=== PATIENT | female | born 1945 | race Caucasian/White ===

== ENCOUNTER → 2017-01-31 | Outpatient (CLI) | payer OTHER ==
[~2017-01-31] VITALS: Ht 165.1 cm; Wt 58.1 kg
[~2017-01-31] MED LIST: ADVAIR 100/501 DISK IH; ADVAIR 250/501 DISK IH; ALBUTEROL17 GM IH; ASPIRIN81 M1 PO; CELEXA40 MG PO; CIPRO500 MG PO; CLONAZEPAM0.5 MG PO; COMBIVENT200 INHALA IH; ELAVIL25 MG PO; FELODIPINE ER10 MG PO; FLAGYL500 MG PO; FLEXERIL10 MG PO; GABAPENTIN300 MG PO; HYDROCODON-ACE1 EAC7 PO; HYDROCODON-ACE1 EAC8 PO; KLONOPIN0.5 M1 PO; LISINOPRIL30 MG PO; LO-DOSE ASPIRIN81 M2 PO; MOBIC15 MG PO; MOTRIN600 MG PO; NEURONTIN400 M1 PO; NEURONTIN800 MG PO; NORCO 7.5/321 TABLET PO; PERCOCET 5-3251 EACH PO; PERCOCET 5/31 TABLET PO; PLENDIL10 MG PO; PRAVACHOL80 MG PO; PRAVASTATIN SOD80 MG PO; VENTOLIN HFA18 GM IH; VICODIN 5-3001 EACH PO; VYTORIN 10-801 EACH PO; ZANAFLEX4 M1 PO; ZANAFLEX4 MG PO; ZESTRIL,PRINIVI30 MG PO
== END | disposition home or self-care (01) ==
LOC: AMB 13:45
DX: K55.039 Acute (reversible) ischemia of large intestine, extent unspecified (principal); D12.2 Benign neoplasm of ascending colon; D12.3 Benign neoplasm of transverse colon; I10 Essential (primary) hypertension; J44.9 Chronic obstructive pulmonary disease, unspecified; Z79.82 Long term (current) use of aspirin
CPT/HCPCS: 88305; 93005

== ENCOUNTER 2017-04-11 11:11 | Day surgery (SDC) | payer OTHER ==
[~2017-04-11] VITALS: Ht 167.6 cm; Wt 61.7 kg
[2017-04-11] MEDS ORDERED: CHLORTHALIDONE25 MG PO (11:30)
== END 2017-04-11 13:10 | disposition home or self-care (01) ==
LOC: PAIN 11:11
PROC: 015B3ZZ Destruction of Lumbar Nerve, Percutaneous Approach (ICD-10-PCS; principal; 2017-04-11)
DX: M47.26 Other spondylosis with radiculopathy, lumbar region (principal); G89.29 Other chronic pain; M25.561 Pain in right knee; F17.200 Nicotine dependence, unspecified, uncomplicated; Z79.891 Long term (current) use of opiate analgesic; F41.9 Anxiety disorder, unspecified; M53.3 Sacrococcygeal disorders, not elsewhere classified; I10 Essential (primary) hypertension; J45.909 Unspecified asthma, uncomplicated; F32.9 Major depressive disorder, single episode, unspecified; Z88.5 Allergy status to narcotic agent; Z88.8 Allergy status to other drugs, medicaments and biological substances
CPT/HCPCS: J1030; J2250; J3010; S0020

== ENCOUNTER 2017-04-24 09:33 | Inpatient (IN) | payer OTHER ==
[~2017-04-24] VITALS: Ht 165.1 cm; Wt 31.6 kg
[~2017-04-24 09:33] MED LIST changes: +CHLORTHALIDONE25 MG PO; -ELAVIL25 MG PO; +ELAVIL75 MG PO
[2017-04-24 10:24] LABS: MCH 31.5 PG (29.0-34.0); MCHC 36.3 G/DL (30.0-36.0); MCV 86.8 FL (83-99); MEAN PLAT.VOLUME 9.8 uM^3 (9.5-12.4); PLATELET COUNT 275 K/uL (156-360); RBC DIS.WIDTH-CV 11.4 % (11.8-14.6); RBC DIS.WIDTH-SD 36.4 % (39-53); RED BLOOD COUNT 4.38 M/uL (3.80-5.20); WHITE BLOOD COUNT 10.9 K/uL (4.1-10.2)
[2017-04-24 10:32] LABS: CHLORIDE 80 mEq/L (99-109); POTASSIUM 3.4 mEq/L (3.7-5.4); SODIUM 120 mEq/L (136-147)
[2017-04-24 10:34] LABS: GLUCOSE 122 mg/dL (70-99)
[2017-04-24 10:35] LABS: ANION GAP 14 MEQ/L (2-14)
[2017-04-24 10:38] LABS: GFR ESTIMATE (CALCULATED) 34 mL/min/
[2017-04-24 10:39] LABS: UREA NITROGEN (BUN) 30 mg/dL (9-23)
[2017-04-24 12:00] LABS: ADD MIUA? YES; BILIRUBIN NEGATIVE; BLOOD NEGATIVE; COLOR YELLOW ((YELLOW)); GLUCOSE (STRIP) NEGATIVE; KETONES NEGATIVE; LEUKOCYTES SMALL; NITRITE NEGATIVE; PROTEIN (STRIP) NEGATIVE; SPECIFIC GRAVITY 1.012 (1.000-1.030); UROBILINOGEN 0.2 MG/DL (0.2-1.0)
[2017-04-24 12:03] LABS: BACTERIA NONE SEEN /HPF; EPITHELIAL CELLS RARE /HPF; MUCUS TRACE /LPF; RED BLOOD CELLS 0-5 /HPF (0-5); UCUL ADDED? YES
[2017-04-24 17:07] VITALS: BP 152/68
[2017-04-24 22:36] LABS: ANION GAP 6 MEQ/L (2-14); CHLORIDE 83 MEQ/L (99-109); GFR ESTIMATE (CALCULATED) 36 mL/min/; POTASSIUM 3.6 MEQ/L (3.7-5.4); SAMPLE HEMOLYSIS CHECK 0; SAMPLE ICTERIC CHECK 0; SAMPLE LIPEMIA CHECK 0; UREA NITROGEN (BUN) 31 mg/dL (9-23)
[2017-04-24 22:38] LABS: GLUCOSE 85 mg/dL (70-99)
[2017-04-24 22:39] LABS: SODIUM 115 MEQ/L (136-147)
[2017-04-24 23:48] VITALS: BP 125/59
[2017-04-25 00:59] LABS: TROP-I INTERPRETATION NEGATIVE; TROPONIN-I < 0.01 ng/mL (0.0-0.30)
[2017-04-25 06:58] LABS: HEMATOCRIT 35.8 % (36.0-46.0); MCH 30.8 PG (29.0-34.0); MCHC 35.2 G/DL (30.0-36.0); MCV 87.5 FL (83-99); MEAN PLAT.VOLUME 9.7 uM^3 (9.5-12.4); PLATELET COUNT 260 K/uL (156-360); RBC DIS.WIDTH-CV 11.6 % (11.8-14.6); RBC DIS.WIDTH-SD 37.1 % (39-53); RED BLOOD COUNT 4.09 M/uL (3.80-5.20); WHITE BLOOD COUNT 8.7 K/uL (4.1-10.2)
[2017-04-25 07:24] LABS: TROP-I INTERPRETATION NEGATIVE; TROPONIN-I < 0.01 ng/mL (0.0-0.30)
[2017-04-25 07:45] VITALS: BP 135/62
[2017-04-25 07:55] LABS: ANION GAP 8 MEQ/L (2-14); CHLORIDE 88 MEQ/L (99-109); GFR ESTIMATE (CALCULATED) 43 mL/min/; GLUCOSE 88 mg/dL (70-99); SAMPLE HEMOLYSIS CHECK 0; SAMPLE ICTERIC CHECK 0; SAMPLE LIPEMIA CHECK 0; UREA NITROGEN (BUN) 29 mg/dL (9-23)
[2017-04-25 07:59] LABS: POTASSIUM 4.4 MEQ/L (3.7-5.4); SODIUM 124 MEQ/L (136-147)
[2017-04-25 10:29] LABS: URIC ACID 7.8 mg/dL (3.1-9.2)
[2017-04-25 11:31] VITALS: BP 115/59
[2017-04-25 16:13] VITALS: BP 119/79
[2017-04-25 20:25] VITALS: BP 145/65
[2017-04-25 23:29] VITALS: BP 138/60
[2017-04-26 04:32] VITALS: BP 141/63
[2017-04-26 06:39] LABS: ANION GAP 10 MEQ/L (2-14); CHLORIDE 94 MEQ/L (99-109); GFR ESTIMATE (CALCULATED) 47 mL/min/; GLUCOSE 98 mg/dL (70-99); POTASSIUM 4.6 MEQ/L (3.7-5.4); SAMPLE HEMOLYSIS CHECK 0; SAMPLE ICTERIC CHECK 0; SAMPLE LIPEMIA CHECK 0; UREA NITROGEN (BUN) 22 mg/dL (9-23)
[2017-04-26 06:43] LABS: SODIUM 132 MEQ/L (136-147)
[2017-04-26 08:07] VITALS: BP 167/72
[2017-04-26] MEDS ORDERED: AUGMENTIN875 MG PO (12:08)
== END 2017-04-26 15:36 | disposition home health service (06) | DRG 682 ==
LOC: EME 09:33 → 5EAST 14:41 → EDOF 14:41 → ENRESERV 14:42 → 5EAST 16:49 → ENPENDDIS 04-26 → 5EAST 04-26 15:36
PROVIDERS: Emergency Medicine; Hospitalist; Internal Medicine Nephrology
DX: N17.9 Acute kidney failure, unspecified (principal); J18.9 Pneumonia, unspecified organism; J96.01 Acute respiratory failure with hypoxia; R64 Cachexia; J44.0 Chronic obstructive pulmonary disease with (acute) lower respiratory infection; J44.1 Chronic obstructive pulmonary disease with (acute) exacerbation; E87.1 Hypo-osmolality and hyponatremia; E87.3 Alkalosis; Z68.1 Body mass index [BMI] 19.9 or less, adult; R29.6 Repeated falls; E86.0 Dehydration; E78.5 Hyperlipidemia, unspecified; M54.40 Lumbago with sciatica, unspecified side; T50.2X1A Poisoning by carbonic-anhydrase inhibitors, benzothiadiazides and other diuretics, accidental (unintentional), initial encounter; E87.6 Hypokalemia; F17.210 Nicotine dependence, cigarettes, uncomplicated; I10 Essential (primary) hypertension; I25.10 Atherosclerotic heart disease of native coronary artery without angina pectoris; F41.9 Anxiety disorder, unspecified; I73.9 Peripheral vascular disease, unspecified; K59.00 Constipation, unspecified; Z79.82 Long term (current) use of aspirin; Z88.5 Allergy status to narcotic agent; Z82.3 Family history of stroke; Z82.49 Family history of ischemic heart disease and other diseases of the circulatory system; Y92.89 Other specified places as the place of occurrence of the external cause
CPT/HCPCS: 70450; 71020; 74176; 80048; 80048 91; 80069; 81003; 82306; 82607; 83605; 83930; 83935; 84300; 84443; 84484; 84550; 85027; 87040; 87086; 93005; 94640; 94640 76; 94799; 99202; 99281; 99285; J0456; J0696; J1644; J7050

== ENCOUNTER 2017-05-30 09:53 | Day surgery (SDC) | payer OTHER ==
[~2017-05-30] VITALS: Ht 165.1 cm; Wt 58.1 kg
[~2017-05-30 09:53] MED LIST changes: +AUGMENTIN875 MG PO; +CENTRUM SILVER1 EAC3 PO
== END 2017-05-30 11:35 | disposition home or self-care (01) ==
LOC: PAIN 09:53
PROC: 015B3ZZ Destruction of Lumbar Nerve, Percutaneous Approach (ICD-10-PCS; principal; 2017-05-30)
DX: M47.26 Other spondylosis with radiculopathy, lumbar region (principal); G89.29 Other chronic pain; M25.561 Pain in right knee; M48.061 Spinal stenosis, lumbar region without neurogenic claudication; R29.6 Repeated falls; F17.210 Nicotine dependence, cigarettes, uncomplicated; I10 Essential (primary) hypertension; F32.9 Major depressive disorder, single episode, unspecified; F41.9 Anxiety disorder, unspecified
CPT/HCPCS: J1030; J2250; J3010; S0020

== ENCOUNTER 2017-07-17 13:46 | Inpatient (IN) | payer OTHER ==
[~2017-07-17] VITALS: Ht 165.1 cm; Wt 54.7 kg
[2017-07-17 14:52] LABS: HEMATOCRIT 36.2 % (36.0-46.0); MCHC 35.4 G/DL (30.0-36.0); MCV 90.5 FL (83-99); MEAN PLAT.VOLUME 10.1 uM^3 (9.5-12.4); PLATELET COUNT 407 K/uL (156-360); RBC DIS.WIDTH-SD 40.2 % (39-53); WHITE BLOOD COUNT 11.6 K/uL (4.1-10.2)
[2017-07-17 15:07] LABS: CHLORIDE 95 mEq/L (99-109); POTASSIUM 5.9 mEq/L (3.7-5.4); SODIUM 126 mEq/L (136-147)
[2017-07-17 15:10] LABS: GLUCOSE 177 mg/dL (70-99)
[2017-07-17 15:11] LABS: ANION GAP 14 MEQ/L (2-14); TOTAL BILIRUBIN 0.6 mg/dL (0.0-1.0)
[2017-07-17 15:13] LABS: ALKALINE PHOSPHATASE 150 IU/L (3-129); GFR ESTIMATE (CALCULATED) 40 mL/min/
[2017-07-17 15:14] LABS: UREA NITROGEN (BUN) 17 mg/dL (9-23)
[2017-07-17 15:17] LABS: LIPASE 30 U/L (1.0-51.0)
[2017-07-17 15:39] LABS: TROP-I INTERPRETATION NEGATIVE; TROPONIN-I < 0.01 ng/mL (0.0-0.30)
[2017-07-17] MEDS ORDERED: NORCO 10/3251 TABLET PO (18:24)
[2017-07-17 19:05] LABS: C DIFF TOXIN NEGATIVE (NEGATIVE); PROBE CHECK PASS; SPECIMEN PROCESSING CONTROL PASS
[2017-07-17 20:11] VITALS: BP 164/66
[2017-07-18 00:21] LABS: ADD MIUA? YES; BILIRUBIN NEGATIVE; BLOOD SMALL; COLOR AMBER ((YELLOW)); GLUCOSE (STRIP) NEGATIVE; KETONES NEGATIVE; LEUKOCYTES TRACE; NITRITE NEGATIVE; PROTEIN (STRIP) NEGATIVE; SPECIFIC GRAVITY 1.044 (1.000-1.030)
[2017-07-18 00:23] VITALS: BP 125/60
[2017-07-18 00:38] LABS: BACTERIA NONE SEEN /HPF; EPITHELIAL CELLS RARE /HPF; MUCUS TRACE /LPF; UCUL ADDED? NO; WHITE BLOOD CELLS 0-5 /HPF (0-5)
[2017-07-18 03:39] VITALS: BP 122/58
[2017-07-18 07:07] LABS: HEMATOCRIT 30.8 % (36.0-46.0); MCH 31.9 PG (29.0-34.0); MCHC 34.4 G/DL (30.0-36.0); MCV 92.8 FL (83-99); MEAN PLAT.VOLUME 10.1 uM^3 (9.5-12.4); PLATELET COUNT 286 K/uL (156-360); RBC DIS.WIDTH-CV 12.4 % (11.8-14.6); RBC DIS.WIDTH-SD 42.8 % (39-53); RED BLOOD COUNT 3.32 M/uL (3.80-5.20); WHITE BLOOD COUNT 8.7 K/uL (4.1-10.2)
[2017-07-18 07:21] LABS: ANION GAP 8 MEQ/L (2-14); CHLORIDE 99 MEQ/L (99-109); GFR ESTIMATE (CALCULATED) 52 mL/min/; GLUCOSE 124 mg/dL (70-99); POTASSIUM 5.3 MEQ/L (3.7-5.4); SAMPLE HEMOLYSIS CHECK 0; SAMPLE ICTERIC CHECK 0; SAMPLE LIPEMIA CHECK 0; SODIUM 130 MEQ/L (136-147); UREA NITROGEN (BUN) 19 mg/dL (9-23); URIC ACID 5.8 mg/dL (3.1-9.2)
[2017-07-18 08:42] VITALS: BP 144/62
[2017-07-18 11:46] VITALS: BP 121/58
[2017-07-18 15:42] VITALS: BP 116/55
[2017-07-18 23:59] VITALS: BP 120/57
[2017-07-19 03:13] VITALS: BP 149/65
[2017-07-19 06:31] LABS: EOSINOPHIL COUNT 0.1 K/uL (0-0.3); HEMATOCRIT 26.1 % (36.0-46.0); IMMATURE GRANULOCYTE (%) 0.2 % (0.0-0.7); INSTRUMENT ABS NEUTROPHIL CT 2.9 K/uL; LYMPHOCYTE COUNT 1.6 K/uL (1.0-2.8); MCH 32.2 PG (29.0-34.0); MCHC 34.1 G/DL (30.0-36.0); MCV 94.6 FL (83-99); MEAN PLAT.VOLUME 9.7 uM^3 (9.5-12.4); MONOCYTE COUNT 0.6 K/uL (0-0.8); NEUTROPHIL (%) 56.4 % (45-76); NEUTROPHIL COUNT 2.9 K/uL (1.8-6.4); PLATELET COUNT 239 K/uL (156-360); RBC DIS.WIDTH-CV 12.9 % (11.8-14.6); RBC DIS.WIDTH-SD 44.6 % (39-53); RED BLOOD COUNT 2.76 M/uL (3.80-5.20); WHITE BLOOD COUNT 5.1 K/uL (4.1-10.2)
[2017-07-19 07:14] LABS: ANION GAP 4 MEQ/L (2-14); CHLORIDE 108 MEQ/L (99-109); GFR ESTIMATE (CALCULATED) > 59 mL/min/; GLUCOSE 94 mg/dL (70-99); POTASSIUM 4.6 MEQ/L (3.7-5.4); SAMPLE HEMOLYSIS CHECK 0; SAMPLE ICTERIC CHECK 0; SAMPLE LIPEMIA CHECK 0; UREA NITROGEN (BUN) 10 mg/dL (9-23)
[2017-07-19 07:21] LABS: SODIUM 138 MEQ/L (136-147)
[2017-07-19 07:48] VITALS: BP 146/65
[2017-07-19] MEDS ORDERED: CIPRO500 MG PO (11:38)
[2017-07-19] MEDS ORDERED: FLAGYL500 MG PO (11:38)
[2017-07-19 11:48] VITALS: BP 127/60
[2017-07-19 12:40] LABS: HEMATOCRIT 25.6 % (36.0-46.0); MCV 93.4 FL (83-99)
== END 2017-07-19 14:23 | disposition home or self-care (01) | DRG 392 ==
LOC: EME 13:46 → EDOF 18:07 → 5SOUTH 18:07 → ENRESERV 18:10 → 5SOUTH 19:43
PROVIDERS: Emergency Medicine; Internal Medicine; Internal Medicine Nephrology; Physician Assistant Medical
DX: K52.9 Noninfective gastroenteritis and colitis, unspecified (principal); N17.9 Acute kidney failure, unspecified; E87.1 Hypo-osmolality and hyponatremia; E87.4 Mixed disorder of acid-base balance; F33.9 Major depressive disorder, recurrent, unspecified; J44.9 Chronic obstructive pulmonary disease, unspecified; E78.5 Hyperlipidemia, unspecified; G89.29 Other chronic pain; F17.210 Nicotine dependence, cigarettes, uncomplicated; E87.5 Hyperkalemia; E86.0 Dehydration; D64.9 Anemia, unspecified; I10 Essential (primary) hypertension; K59.00 Constipation, unspecified; T39.395A Adverse effect of other nonsteroidal anti-inflammatory drugs [NSAID], initial encounter; E87.6 Hypokalemia; M54.9 Dorsalgia, unspecified; K29.70 Gastritis, unspecified, without bleeding; Z99.81 Dependence on supplemental oxygen; Z79.891 Long term (current) use of opiate analgesic; Z86.010 Personal history of colon polyps; Z88.5 Allergy status to narcotic agent; Z90.49 Acquired absence of other specified parts of digestive tract
CPT/HCPCS: 71020; 74177; 80048; 80048 91; 80053; 81003; 82533 91; 83605; 83630; 83690; 83935; 84300; 84443; 84484; 84550; 85014; 85018; 85025; 85027; 87177; 87329; 87493; 87506; 93005; 94640; 94640 76; 94760; 94799; 99281; 99285; J0744; J1650; J7030; S0030